=== PATIENT | female | born 1955 | race African-American/Black ===

== ENCOUNTER 2017-06-27 19:28 | Emergency (ER) | payer MEDICAID ==
[~2017-06-27] VITALS: Ht 167.6 cm; Wt 64.0 kg
[2017-06-27] MEDS ORDERED: KETOROLAC 15MG/ML VIAL IV ONE (22:15)
[2017-06-28] VITALS: BP 129/84
== END 2017-06-28 00:34 | disposition home or self-care (01) ==
LOC: ER 19:28
DX: F10.10 Alcohol abuse, uncomplicated (principal); M79.604 Pain in right leg; E11.9 Type 2 diabetes mellitus without complications; I10 Essential (primary) hypertension; F41.9 Anxiety disorder, unspecified; F17.200 Nicotine dependence, unspecified, uncomplicated
CPT/HCPCS: 96374; 99284; J1885

== ENCOUNTER 2020-12-03 01:20 | Inpatient (IN) | payer MEDICARE, MEDICAID ==
[~2020-12-03] VITALS: Ht 170.2 cm; Wt 76.7 kg
[2020-12-03 02:15] LABS: BASOPHILS % 0.4 % (0.0-2.0); EOSINOPHILS % 0.1 % (0.0-5.0); HEMATOCRIT. 36.9 % (36.0-48.0); HEMOGLOBIN. 12.2 g/dL (12.0-16.0); LYMPHOCYTES % 21.7 % (20.0-50.0); MEAN CORPUSCULAR HEMOGLOBIN 30.2 pg (28.0-32.0); MEAN CORPUSCULAR VOLUME 91.7 fL (81.0-99.0); MEAN PLATELET VOLUME 8.6 fl (7.4-10.4); MONOCYTES % 4.7 % (2.0-8.0); NEUTROPHILS % 73.1 % (40.0-76.0); PLATELET 258 x1000/uL (130-400); RED BLOOD CELL COUNT 4.03 mill/uL (4.2-5.4); RED CELL DISTRIBUTION WIDTH 13.8 % (11.6-14.6)
[2020-12-03 02:17] LABS: CHLORIDE 111 mEq/L (98-107)
[2020-12-03 02:22] LABS: ETHANOL BLOOD 151 mg/dL
[2020-12-03 02:28] LABS: HCG SCREEN NEGATIVE
[2020-12-03] MEDS ORDERED: LORAZEPAM 2MG/ML CPJ IM ONE (04:30)
[2020-12-03 05:22] LABS: CLARITY URINE CLOUDY (CLEAR); COLOR URINE RED (YELLOW); KETONES URINE NEGATIVE (NEGATIVE); LEUKOCYTE ESTERASE URINE TRACE (NEGATIVE); NITRITE URINE NEGATIVE (NEGATIVE); OCCULT BLOOD URINE 3+ (NEGATIVE); PROTEIN URINE 2+ (NEGATIVE); SPECIFIC GRAVITY URINE 1.007 (1.005-1.030); UROBILINOGEN URINE 0.2 E.U./dL (0.2-1.0)
[2020-12-03 06:19] LABS: *AMPHETAMINES SCREEN URINE NEGATIVE (NEGATIVE); *BARBITURATES SCREEN URINE NEGATIVE (NEGATIVE); *BENZODIAZEPINES SCREEN URINE NEGATIVE (NEGATIVE); *COCAINE SCREEN URINE PRESUMTIVE POSITIVE (NEGATIVE)
[2020-12-03 06:20] LABS: CANNABINOID URINE SCREEN NEGATIVE (NEGATIVE); METHADONE URINE SCREEN NEGATIVE (NEGATIVE); OPIATES URINE SCREEN NEGATIVE (NEGATIVE); PHENCYCLIDINE URINE SCREEN NEGATIVE (NEGATIVE)
[2020-12-03] MEDS ORDERED: MEROPENEM 1,000 MG in SODIUM CHLORIDE 0.9% 100 ML IV SCH (07:00)
[2020-12-03] MEDS ORDERED: VANCOMYCIN 1 G PREMIX 200 ML IV SCH (07:00)
[2020-12-03] MEDS ORDERED: SODIUM CHLORIDE 0.9% 1,000 ML IV SCH (07:00)
[2020-12-03 10:00] VITALS: BP 152/77
[2020-12-03 10:23] VITALS: BP 152/77
[2020-12-03 12:00] VITALS: BP 143/125
[2020-12-03] MEDS ORDERED: DEXTROSE 50% WATER 50ML SYRINGE IV PRN ×2 (12:15)
[2020-12-03] MEDS ORDERED: MAGNESIUM/ALUMINUM HYDROXIDE/SIMETHICONE 30ML UDC PO PRN (12:15)
[2020-12-03] MEDS ORDERED: DOCUSATE SODIUM 100MG CAPSULE PO PRN (12:15)
[2020-12-03] MEDS: INSULIN LISPRO 100 UNITS/ML SUBCUT SCH ×3 (12:15→20:31)
[2020-12-03] MEDS ORDERED: POTASSIUM CHLORIDE INJ 40 MEQ in DEXT 5% WATER 250 ML IV NR (13:00)
[2020-12-03] MEDS: ENOXAPARIN 40MG/0.4ML SYR SUBCUT SCH (13:17)
[2020-12-03] MEDS: LORAZEPAM 2MG/ML CPJ IV PRN (13:17)
[2020-12-03 16:00] VITALS: BP 119/83
[2020-12-03] MEDS: BLOOD SUGAR DIAGNOSTIC STRIP TEST SCH ×2 (17:29→20:31)
[2020-12-03] MEDS: NITROFURANTOIN MACROCRYSTAL 50MG CAPSULE PO SCH (17:29)
[2020-12-03 20:00] VITALS: BP 124/77
[2020-12-03 20:03] LABS: VITAMIN B12 SERUM 377 pg/mL (211-911)
[2020-12-04] VITALS: BP 132/77
[2020-12-04] MEDS: NITROFURANTOIN MACROCRYSTAL 50MG CAPSULE PO SCH ×4 (00:56→17:14)
[2020-12-04] MEDS: HYDROCODONE/ACETAMINOPHEN 5/325MG TABLET PO PRN ×2 (02:36→08:29)
[2020-12-04 04:00] VITALS: BP 121/74
[2020-12-04] MEDS ORDERED: MORPHINE SULFATE 2 MG/ML CPJ (NOT FOR IM USE) IV PRN (06:15)
[2020-12-04] MEDS: BLOOD SUGAR DIAGNOSTIC STRIP TEST SCH ×4 (06:15→21:29)
[2020-12-04] MEDS: INSULIN LISPRO 100 UNITS/ML SUBCUT SCH ×4 (06:17→21:00)
[2020-12-04] MEDS: OMEPRAZOLE 20MG CAPSULE EXTENDED RELEASE PO SCH (06:17)
[2020-12-04 07:11] LABS: BASOPHILS % 0.4 % (0.0-2.0); HEMATOCRIT. 30.2 % (36.0-48.0); LYMPHOCYTES % 26.4 % (20.0-50.0); MEAN CORPUSCULAR HEMOGLOBIN 29.9 pg (28.0-32.0); MEAN CORPUSCULAR VOLUME 90.3 fL (81.0-99.0); MEAN PLATELET VOLUME 9.3 fl (7.4-10.4); NEUTROPHILS % 63.2 % (40.0-76.0); PLATELET 206 x1000/uL (130-400); RED BLOOD CELL COUNT 3.35 mill/uL (4.2-5.4); RED CELL DISTRIBUTION WIDTH 13.8 % (11.6-14.6)
[2020-12-04 07:59] LABS: CHLORIDE 109 mEq/L (98-107)
[2020-12-04 08:00] VITALS: BP 150/86
[2020-12-04 08:07] LABS: PHOSPHORUS 3.4 mg/dL (2.5-4.9)
[2020-12-04 08:08] LABS: LDL CHOLESTEROL 92 mg/dL (5-100)
[2020-12-04 08:15] LABS: HDL CHOLESTEROL 49 mg/dL (40-59)
[2020-12-04] MEDS: ENOXAPARIN 40MG/0.4ML SYR SUBCUT SCH (08:28)
[2020-12-04 12:00] VITALS: BP 104/82
[2020-12-04 16:00] VITALS: BP 128/81
[2020-12-05] VITALS: BP 97/53
[2020-12-05] MEDS: NITROFURANTOIN MACROCRYSTAL 50MG CAPSULE PO SCH ×4 (00:06→17:24)
[2020-12-05] MEDS: HYDROCODONE/ACETAMINOPHEN 5/325MG TABLET PO PRN ×2 (02:53→22:14)
[2020-12-05 04:00] VITALS: BP 124/77
[2020-12-05] MEDS: OMEPRAZOLE 20MG CAPSULE EXTENDED RELEASE PO SCH (06:19)
[2020-12-05] MEDS: BLOOD SUGAR DIAGNOSTIC STRIP TEST SCH ×4 (06:20→20:04)
[2020-12-05] MEDS: INSULIN LISPRO 100 UNITS/ML SUBCUT SCH ×4 (06:20→20:18)
[2020-12-05 08:00] VITALS: BP 105/60
[2020-12-05 08:41] LABS: BASOPHILS % 0.5 % (0.0-2.0); EOSINOPHILS % 0.2 % (0.0-5.0); HEMATOCRIT. 25.6 % (36.0-48.0); HEMOGLOBIN. 8.7 g/dL (12.0-16.0); LYMPHOCYTES % 20.6 % (20.0-50.0); MEAN CORPUSCULAR HEMOGLOBIN 30.6 pg (28.0-32.0); MEAN CORPUSCULAR VOLUME 90.1 fL (81.0-99.0); MEAN PLATELET VOLUME 9.5 fl (7.4-10.4); MONOCYTES % 9.3 % (2.0-8.0); NEUTROPHILS % 69.4 % (40.0-76.0); PLATELET 192 x1000/uL (130-400); RED BLOOD CELL COUNT 2.84 mill/uL (4.2-5.4); RED CELL DISTRIBUTION WIDTH 13.2 % (11.6-14.6)
[2020-12-05] MEDS: ENOXAPARIN 40MG/0.4ML SYR SUBCUT SCH (08:44)
[2020-12-05 08:49] LABS: CHLORIDE 107 mEq/L (98-107)
[2020-12-05 12:00] VITALS: BP 119/70
[2020-12-05 16:00] VITALS: BP 140/68
[2020-12-05 18:08] LABS: TOTAL IRON BINDING CAPACITY 244 ug/dL (250-450)
[2020-12-05] MEDS: LACTULOSE 20G/30ML UDC PO NR ×2 (19:55→22:18)
[2020-12-05 20:00] VITALS: BP 126/75
[2020-12-06] VITALS: BP 147/93
[2020-12-06] MEDS: NITROFURANTOIN MACROCRYSTAL 50MG CAPSULE PO SCH ×4 (00:58→17:03)
[2020-12-06] MEDS: ACETAMINOPHEN 325MG TABLET PO PRN ×2 (00:58→16:57)
[2020-12-06 04:00] VITALS: BP 144/81
[2020-12-06] MEDS: HYDROCODONE/ACETAMINOPHEN 5/325MG TABLET PO PRN ×3 (05:05→17:03)
[2020-12-06] MEDS: OMEPRAZOLE 20MG CAPSULE EXTENDED RELEASE PO SCH (05:48)
[2020-12-06] MEDS: BLOOD SUGAR DIAGNOSTIC STRIP TEST SCH ×4 (05:48→21:00)
[2020-12-06] MEDS: INSULIN LISPRO 100 UNITS/ML SUBCUT SCH ×4 (06:26→21:00)
[2020-12-06 07:13] LABS: HIV SCREEN 4G Non Reactive (Non Reactive)
[2020-12-06 07:45] LABS: BASOPHILS % 0.5 % (0.0-2.0); EOSINOPHILS % 0.6 % (0.0-5.0); HEMATOCRIT. 26.3 % (36.0-48.0); HEMOGLOBIN. 8.9 g/dL (12.0-16.0); LYMPHOCYTES % 23.4 % (20.0-50.0); MEAN CORPUSCULAR HEMOGLOBIN 30.7 pg (28.0-32.0); MEAN CORPUSCULAR VOLUME 90.2 fL (81.0-99.0); MEAN PLATELET VOLUME 8.7 fl (7.4-10.4); MONOCYTES % 8.4 % (2.0-8.0); NEUTROPHILS % 67.1 % (40.0-76.0); PLATELET 201 x1000/uL (130-400); RED BLOOD CELL COUNT 2.91 mill/uL (4.2-5.4); RED CELL DISTRIBUTION WIDTH 13.6 % (11.6-14.6)
[2020-12-06 08:00] VITALS: BP 138/69
[2020-12-06 08:20] LABS: CHLORIDE 105 mEq/L (98-107)
[2020-12-06] MEDS: LEVOFLOXACIN 500MG PREMIX 100 ML IV SCH ×2 (08:22→09:53)
[2020-12-06] MEDS: DOCUSATE SODIUM 100MG CAPSULE PO SCH ×2 (11:44→16:57)
[2020-12-06 12:00] VITALS: BP 100/64
[2020-12-06 16:00] VITALS: BP 137/75
[2020-12-06 20:00] VITALS: BP 146/74
[2020-12-06] MEDS ORDERED: MORPHINE SULFATE 2 MG/ML CPJ (NOT FOR IM USE) IV NR (20:15)
[2020-12-06] MEDS: SENNOSIDES/DOCUSATE SOD 8.6/50MG TABLET PO SCH (21:23)
[2020-12-07] VITALS: BP 131/67
[2020-12-07] MEDS: NITROFURANTOIN MACROCRYSTAL 50MG CAPSULE PO SCH ×5 (00:07→23:21)
[2020-12-07 04:00] VITALS: BP 134/76
[2020-12-07 04:15] LABS: BASOPHILS % 0.5 % (0.0-2.0); EOSINOPHILS % 1.4 % (0.0-5.0); HEMATOCRIT. 25.5 % (36.0-48.0); HEMOGLOBIN. 8.6 g/dL (12.0-16.0); LYMPHOCYTES % 24.7 % (20.0-50.0); MEAN CORPUSCULAR HEMOGLOBIN 30.3 pg (28.0-32.0); MEAN CORPUSCULAR VOLUME 90.2 fL (81.0-99.0); MEAN PLATELET VOLUME 8.4 fl (7.4-10.4); MONOCYTES % 10.4 % (2.0-8.0); PLATELET 218 x1000/uL (130-400); RED BLOOD CELL COUNT 2.83 mill/uL (4.2-5.4); RED CELL DISTRIBUTION WIDTH 13.4 % (11.6-14.6)
[2020-12-07 04:22] LABS: CHLORIDE 104 mEq/L (98-107)
[2020-12-07] MEDS: LORAZEPAM 2MG/ML CPJ IV PRN (04:45)
[2020-12-07] MEDS: BLOOD SUGAR DIAGNOSTIC STRIP TEST SCH ×4 (06:03→21:20)
[2020-12-07] MEDS: OMEPRAZOLE 20MG CAPSULE EXTENDED RELEASE PO SCH (06:05)
[2020-12-07] MEDS: INSULIN LISPRO 100 UNITS/ML SUBCUT SCH ×4 (06:16→21:00)
[2020-12-07 08:00] VITALS: BP_SYST 122; BP_SYST 137; BP_DIAS 68; BP_DIAS 70
[2020-12-07] MEDS ORDERED: MORPHINE SULFATE 4 MG/ML CPJ (NOT FOR IM USE) IV NR (10:15)
[2020-12-07] MEDS: DOCUSATE SODIUM 100MG CAPSULE PO SCH ×2 (10:19→16:45)
[2020-12-07] MEDS: FOLIC ACID 1MG TABLET PO SCH (10:19)
[2020-12-07] MEDS: LEVOFLOXACIN 500MG PREMIX 100 ML IV SCH (10:19)
[2020-12-07 12:00] VITALS: BP 122/70
[2020-12-07 16:00] VITALS: BP 107/71
[2020-12-07] MEDS: HYDROCODONE/ACETAMINOPHEN 5/325MG TABLET PO PRN (16:45)
[2020-12-07 20:00] VITALS: BP 125/75
[2020-12-07] MEDS: SENNOSIDES/DOCUSATE SOD 8.6/50MG TABLET PO SCH (21:20)
[2020-12-08] VITALS: BP 140/82
[2020-12-08 04:00] VITALS: BP 115/72
[2020-12-08] MEDS: NITROFURANTOIN MACROCRYSTAL 50MG CAPSULE PO SCH ×3 (05:28→17:57)
[2020-12-08] MEDS: OMEPRAZOLE 20MG CAPSULE EXTENDED RELEASE PO SCH (05:29)
[2020-12-08] MEDS: HYDROCODONE/ACETAMINOPHEN 5/325MG TABLET PO PRN (05:29)
[2020-12-08] MEDS: LORAZEPAM 2MG/ML CPJ IV PRN (05:36)
[2020-12-08] MEDS: BLOOD SUGAR DIAGNOSTIC STRIP TEST SCH ×4 (06:32→20:48)
[2020-12-08] MEDS: INSULIN LISPRO 100 UNITS/ML SUBCUT SCH ×4 (06:33→20:48)
[2020-12-08 06:56] LABS: CHLORIDE 101 mEq/L (98-107)
[2020-12-08 07:00] LABS: BASOPHILS % 0.5 % (0.0-2.0); EOSINOPHILS % 1.1 % (0.0-5.0); HEMOGLOBIN. 8.5 g/dL (12.0-16.0); LYMPHOCYTES % 23.7 % (20.0-50.0); MEAN CORPUSCULAR HEMOGLOBIN 30.8 pg (28.0-32.0); MEAN CORPUSCULAR VOLUME 90.3 fL (81.0-99.0); MEAN PLATELET VOLUME 8.5 fl (7.4-10.4); MONOCYTES % 10.3 % (2.0-8.0); NEUTROPHILS % 64.4 % (40.0-76.0); PLATELET 242 x1000/uL (130-400); RED BLOOD CELL COUNT 2.77 mill/uL (4.2-5.4); RED CELL DISTRIBUTION WIDTH 13.6 % (11.6-14.6)
[2020-12-08 08:00] VITALS: BP 113/66
[2020-12-08] MEDS: FOLIC ACID 1MG TABLET PO SCH (08:38)
[2020-12-08] MEDS: DOCUSATE SODIUM 100MG CAPSULE PO SCH ×2 (08:38→17:00)
[2020-12-08] MEDS: LEVOFLOXACIN 500MG TABLET PO SCH (11:36)
[2020-12-08 12:00] VITALS: BP 121/59
[2020-12-08] MEDS: HYDROCODONE/ACETAMINOPHEN 10/325MG TABLET PO PRN ×2 (15:57→20:20)
[2020-12-08 16:00] VITALS: BP 107/53
[2020-12-08] MEDS ORDERED: LACTULOSE 20G/30ML UDC PO NR (17:00)
[2020-12-08 20:00] VITALS: BP 141/82
[2020-12-08] MEDS: SENNOSIDES/DOCUSATE SOD 8.6/50MG TABLET PO SCH (20:19)
[2020-12-09] VITALS: BP 113/68
[2020-12-09] MEDS: HYDROCODONE/ACETAMINOPHEN 10/325MG TABLET PO PRN ×2 (02:44→06:30)
[2020-12-09 04:00] VITALS: BP 112/66
[2020-12-09] MEDS: ACETAMINOPHEN 325MG TABLET PO PRN (04:15)
[2020-12-09] MEDS: OMEPRAZOLE 20MG CAPSULE EXTENDED RELEASE PO SCH (05:45)
[2020-12-09] MEDS: BLOOD SUGAR DIAGNOSTIC STRIP TEST SCH ×4 (06:19→20:27)
[2020-12-09] MEDS: INSULIN LISPRO 100 UNITS/ML SUBCUT SCH ×4 (06:20→20:25)
[2020-12-09 06:49] LABS: BASOPHILS % 0.3 % (0.0-2.0); EOSINOPHILS % 0.3 % (0.0-5.0); HEMOGLOBIN. 9.1 g/dL (12.0-16.0); LYMPHOCYTES % 9.4 % (20.0-50.0); MEAN CORPUSCULAR HEMOGLOBIN 30.3 pg (28.0-32.0); MEAN CORPUSCULAR VOLUME 90.5 fL (81.0-99.0); MEAN PLATELET VOLUME 8.6 fl (7.4-10.4); MONOCYTES % 6.3 % (2.0-8.0); NEUTROPHILS % 83.7 % (40.0-76.0); PLATELET 292 x1000/uL (130-400); RED BLOOD CELL COUNT 2.99 mill/uL (4.2-5.4); RED CELL DISTRIBUTION WIDTH 13.7 % (11.6-14.6)
[2020-12-09 06:57] LABS: CHLORIDE 103 mEq/L (98-107)
[2020-12-09 08:00] VITALS: BP 129/67
[2020-12-09] MEDS: DOCUSATE SODIUM 100MG CAPSULE PO SCH ×2 (09:00→17:17)
[2020-12-09] MEDS: FOLIC ACID 1MG TABLET PO SCH (09:40)
[2020-12-09] MEDS ORDERED: MORPHINE SULFATE 2 MG/ML CPJ (NOT FOR IM USE) IV SCH (10:00)
[2020-12-09] MEDS: LEVOFLOXACIN 500MG TABLET PO SCH (11:13)
[2020-12-09 12:00] VITALS: BP 142/72
[2020-12-09 16:00] VITALS: BP 123/67
[2020-12-09 20:00] VITALS: BP 121/66
[2020-12-09] MEDS: SENNOSIDES/DOCUSATE SOD 8.6/50MG TABLET PO SCH (20:19)
[2020-12-09] MEDS: MORPHINE SULFATE 4 MG/ML CPJ (NOT FOR IM USE) IV PRN (20:20)
[2020-12-09] MEDS: LORAZEPAM 2MG/ML CPJ IV PRN (22:12)
[2020-12-10] VITALS: BP 115/63
[2020-12-10] MEDS: MORPHINE SULFATE 4 MG/ML CPJ (NOT FOR IM USE) IV PRN (02:57)
[2020-12-10 04:00] VITALS: BP 127/72
[2020-12-10] MEDS: HYDROCODONE/ACETAMINOPHEN 10/325MG TABLET PO PRN ×4 (04:59→20:35)
[2020-12-10] MEDS: BLOOD SUGAR DIAGNOSTIC STRIP TEST SCH ×4 (05:53→20:33)
[2020-12-10] MEDS: INSULIN LISPRO 100 UNITS/ML SUBCUT SCH ×4 (05:54→20:33)
[2020-12-10 08:00] VITALS: BP 115/73
[2020-12-10] MEDS: DOCUSATE SODIUM 100MG CAPSULE PO SCH ×2 (09:11→16:07)
[2020-12-10] MEDS: FOLIC ACID 1MG TABLET PO SCH (09:11)
[2020-12-10] MEDS: LEVOFLOXACIN 500MG TABLET PO SCH (11:25)
[2020-12-10 12:00] VITALS: BP 113/71
[2020-12-10] MEDS: ENOXAPARIN 40MG/0.4ML SYR SUBCUT SCH (12:58)
[2020-12-10 16:00] VITALS: BP 108/61
[2020-12-10 20:00] VITALS: BP 123/71
[2020-12-10] MEDS: SENNOSIDES/DOCUSATE SOD 8.6/50MG TABLET PO SCH (20:33)
[2020-12-11] VITALS: BP 124/75
[2020-12-11] MEDS: HYDROCODONE/ACETAMINOPHEN 10/325MG TABLET PO PRN ×3 (01:25→21:02)
[2020-12-11 04:00] VITALS: BP 106/62
[2020-12-11] MEDS: INSULIN LISPRO 100 UNITS/ML SUBCUT SCH ×4 (05:43→21:03)
[2020-12-11] MEDS: BLOOD SUGAR DIAGNOSTIC STRIP TEST SCH ×4 (05:43→21:01)
[2020-12-11 08:00] VITALS: BP 108/61
[2020-12-11] MEDS: FOLIC ACID 1MG TABLET PO SCH (08:47)
[2020-12-11] MEDS: DOCUSATE SODIUM 100MG CAPSULE PO SCH ×2 (08:48→17:28)
[2020-12-11 08:50] LABS: BASOPHILS % 0.7 % (0.0-2.0); EOSINOPHILS % 3.4 % (0.0-5.0); HEMATOCRIT. 23.8 % (36.0-48.0); HEMOGLOBIN. 8.1 g/dL (12.0-16.0); LYMPHOCYTES % 24.5 % (20.0-50.0); MEAN CORPUSCULAR HEMOGLOBIN 30.6 pg (28.0-32.0); MEAN CORPUSCULAR VOLUME 90.1 fL (81.0-99.0); MONOCYTES % 8.9 % (2.0-8.0); NEUTROPHILS % 62.5 % (40.0-76.0); PLATELET 322 x1000/uL (130-400); RED BLOOD CELL COUNT 2.64 mill/uL (4.2-5.4); RED CELL DISTRIBUTION WIDTH 13.7 % (11.6-14.6)
[2020-12-11 09:31] LABS: CHLORIDE 103 mEq/L (98-107)
[2020-12-11] MEDS: LEVOFLOXACIN 500MG TABLET PO SCH (11:43)
[2020-12-11 12:00] VITALS: BP 123/71
[2020-12-11] MEDS: ENOXAPARIN 40MG/0.4ML SYR SUBCUT SCH (13:18)
[2020-12-11 16:00] VITALS: BP 113/65
[2020-12-11 20:00] VITALS: BP 117/65
[2020-12-11] MEDS: SENNOSIDES/DOCUSATE SOD 8.6/50MG TABLET PO SCH (21:02)
[2020-12-12] VITALS: BP 125/69
[2020-12-12] MEDS: HYDROCODONE/ACETAMINOPHEN 10/325MG TABLET PO PRN ×3 (02:51→22:22)
[2020-12-12 04:00] VITALS: BP 106/62
[2020-12-12] MEDS: INSULIN LISPRO 100 UNITS/ML SUBCUT SCH ×4 (06:21→21:00)
[2020-12-12] MEDS: BLOOD SUGAR DIAGNOSTIC STRIP TEST SCH ×4 (06:21→21:04)
[2020-12-12 08:00] VITALS: BP 108/66
[2020-12-12] MEDS: FOLIC ACID 1MG TABLET PO SCH (09:03)
[2020-12-12] MEDS: DOCUSATE SODIUM 100MG CAPSULE PO SCH ×2 (09:03→17:00)
[2020-12-12] MEDS: MORPHINE SULFATE 4 MG/ML CPJ (NOT FOR IM USE) IV PRN (09:04)
[2020-12-12 12:00] VITALS: BP 122/70
[2020-12-12] MEDS: ENOXAPARIN 40MG/0.4ML SYR SUBCUT SCH (14:02)
[2020-12-12 16:00] VITALS: BP 114/70
[2020-12-12] MEDS: LACTULOSE 20G/30ML UDC PO SCH ×2 (17:40→21:04)
[2020-12-12 20:00] VITALS: BP 110/68
[2020-12-12] MEDS: SENNOSIDES/DOCUSATE SOD 8.6/50MG TABLET PO SCH (21:04)
[2020-12-13] VITALS: BP 172/65
[2020-12-13] MEDS: ACETAMINOPHEN 325MG TABLET PO PRN (03:03)
[2020-12-13 04:00] VITALS: BP 154/75
[2020-12-13] MEDS: MORPHINE SULFATE 4 MG/ML CPJ (NOT FOR IM USE) IV PRN ×2 (05:16→17:42)
[2020-12-13] MEDS: LACTULOSE 20G/30ML UDC PO SCH ×3 (06:05→21:31)
[2020-12-13] MEDS: BLOOD SUGAR DIAGNOSTIC STRIP TEST SCH ×4 (06:05→21:31)
[2020-12-13] MEDS: INSULIN LISPRO 100 UNITS/ML SUBCUT SCH ×4 (06:26→21:00)
[2020-12-13 08:00] VITALS: BP 131/77
[2020-12-13] MEDS: HYDROCODONE/ACETAMINOPHEN 10/325MG TABLET PO PRN (08:04)
[2020-12-13] MEDS: FOLIC ACID 1MG TABLET PO SCH (08:44)
[2020-12-13] MEDS: DOCUSATE SODIUM 100MG CAPSULE PO SCH ×2 (08:45→17:42)
[2020-12-13 12:00] VITALS: BP 140/78
[2020-12-13] MEDS: ENOXAPARIN 40MG/0.4ML SYR SUBCUT SCH (12:20)
[2020-12-13 16:00] VITALS: BP 140/79
[2020-12-13 17:48] LABS: BASOPHILS % 0.8 % (0.0-2.0); EOSINOPHILS % 1.7 % (0.0-5.0); HEMATOCRIT. 29.3 % (36.0-48.0); HEMOGLOBIN. 9.5 g/dL (12.0-16.0); LYMPHOCYTES % 26.7 % (20.0-50.0); MEAN CORPUSCULAR VOLUME 92.6 fL (81.0-99.0); MEAN PLATELET VOLUME 8.4 fl (7.4-10.4); MONOCYTES % 8.2 % (2.0-8.0); NEUTROPHILS % 62.6 % (40.0-76.0); PLATELET 365 x1000/uL (130-400); RED BLOOD CELL COUNT 3.16 mill/uL (4.2-5.4); RED CELL DISTRIBUTION WIDTH 14.4 % (11.6-14.6)
[2020-12-13 17:50] LABS: CHLORIDE 108 mEq/L (98-107)
[2020-12-13 20:00] VITALS: BP 122/72
[2020-12-13] MEDS: SENNOSIDES/DOCUSATE SOD 8.6/50MG TABLET PO SCH (21:31)
[2020-12-13] MEDS: LORAZEPAM 2MG/ML CPJ IV PRN (21:31)
[2020-12-14] VITALS: BP 148/79
[2020-12-14 04:00] VITALS: BP 135/78
[2020-12-14] MEDS: MORPHINE SULFATE 4 MG/ML CPJ (NOT FOR IM USE) IV PRN (05:34)
[2020-12-14] MEDS: BLOOD SUGAR DIAGNOSTIC STRIP TEST SCH ×4 (06:22→20:40)
[2020-12-14] MEDS: LACTULOSE 20G/30ML UDC PO SCH ×3 (06:22→20:41)
[2020-12-14] MEDS: INSULIN LISPRO 100 UNITS/ML SUBCUT SCH ×4 (06:22→20:40)
[2020-12-14 08:00] VITALS: BP 122/78
[2020-12-14] MEDS: DOCUSATE SODIUM 100MG CAPSULE PO SCH ×2 (09:07→18:22)
[2020-12-14] MEDS: FOLIC ACID 1MG TABLET PO SCH (09:07)
[2020-12-14] MEDS: HYDROCODONE/ACETAMINOPHEN 10/325MG TABLET PO PRN ×3 (09:09→22:00)
[2020-12-14 12:00] VITALS: BP 125/70
[2020-12-14] MEDS: ENOXAPARIN 40MG/0.4ML SYR SUBCUT SCH (13:30)
[2020-12-14 16:00] VITALS: BP 130/77
[2020-12-14 20:00] VITALS: BP 104/54
[2020-12-14] MEDS: SENNOSIDES/DOCUSATE SOD 8.6/50MG TABLET PO SCH (20:35)
[2020-12-15] VITALS: BP 112/67
[2020-12-15] MEDS: HYDROCODONE/ACETAMINOPHEN 10/325MG TABLET PO PRN ×4 (02:18→21:11)
[2020-12-15 04:00] VITALS: BP 129/68
[2020-12-15] MEDS: LACTULOSE 20G/30ML UDC PO SCH ×3 (06:25→21:12)
[2020-12-15] MEDS: BLOOD SUGAR DIAGNOSTIC STRIP TEST SCH ×4 (06:34→21:12)
[2020-12-15] MEDS: INSULIN LISPRO 100 UNITS/ML SUBCUT SCH ×4 (06:35→21:00)
[2020-12-15 08:00] VITALS: BP 132/82
[2020-12-15] MEDS: FOLIC ACID 1MG TABLET PO SCH (08:52)
[2020-12-15] MEDS: DOCUSATE SODIUM 100MG CAPSULE PO SCH ×2 (08:52→16:54)
[2020-12-15 12:00] VITALS: BP 113/78
[2020-12-15] MEDS: ENOXAPARIN 40MG/0.4ML SYR SUBCUT SCH (13:21)
[2020-12-15 16:00] VITALS: BP 132/78
[2020-12-15 20:29] VITALS: BP 121/54
[2020-12-15] MEDS: SENNOSIDES/DOCUSATE SOD 8.6/50MG TABLET PO SCH (21:00)
[2020-12-15] MEDS: LORAZEPAM 2MG/ML CPJ IV PRN (23:32)
[2020-12-16] VITALS: BP 139/78
[2020-12-16 04:00] VITALS: BP 125/75
[2020-12-16] MEDS: HYDROCODONE/ACETAMINOPHEN 10/325MG TABLET PO PRN ×3 (05:26→20:30)
[2020-12-16] MEDS: LACTULOSE 20G/30ML UDC PO SCH ×3 (05:30→21:35)
[2020-12-16] MEDS: INSULIN LISPRO 100 UNITS/ML SUBCUT SCH ×3 (06:25→21:00)
[2020-12-16] MEDS: BLOOD SUGAR DIAGNOSTIC STRIP TEST SCH ×3 (06:25→20:30)
[2020-12-16 08:00] VITALS: BP 114/67
[2020-12-16] MEDS: DOCUSATE SODIUM 100MG CAPSULE PO SCH ×2 (09:58→17:00)
[2020-12-16] MEDS: FOLIC ACID 1MG TABLET PO SCH (09:58)
[2020-12-16 12:00] VITALS: BP 129/71
[2020-12-16] MEDS: ENOXAPARIN 40MG/0.4ML SYR SUBCUT SCH (13:06)
[2020-12-16 16:00] VITALS: BP 122/65
[2020-12-16 20:00] VITALS: BP 130/70
[2020-12-16] MEDS: SENNOSIDES/DOCUSATE SOD 8.6/50MG TABLET PO SCH (20:30)
[2020-12-17] VITALS: BP 113/69
[2020-12-17] MEDS: HYDROCODONE/ACETAMINOPHEN 10/325MG TABLET PO PRN ×5 (00:45→21:41)
[2020-12-17 04:00] VITALS: BP 133/65
[2020-12-17] MEDS: LACTULOSE 20G/30ML UDC PO SCH ×3 (05:18→21:40)
[2020-12-17] MEDS: INSULIN LISPRO 100 UNITS/ML SUBCUT SCH ×4 (06:38→21:00)
[2020-12-17] MEDS: BLOOD SUGAR DIAGNOSTIC STRIP TEST SCH ×4 (06:38→21:41)
[2020-12-17 08:00] VITALS: BP 130/66
[2020-12-17] MEDS: DOCUSATE SODIUM 100MG CAPSULE PO SCH ×2 (09:00→17:00)
[2020-12-17] MEDS: FOLIC ACID 1MG TABLET PO SCH (09:00)
[2020-12-17 12:00] VITALS: BP 116/70
[2020-12-17] MEDS: ENOXAPARIN 40MG/0.4ML SYR SUBCUT SCH (12:21)
[2020-12-17 16:00] VITALS: BP 132/72
[2020-12-17 19:39] LABS: BASOPHILS % 1.1 % (0.0-2.0); EOSINOPHILS % 2.4 % (0.0-5.0); HEMATOCRIT. 31.8 % (36.0-48.0); HEMOGLOBIN. 10.4 g/dL (12.0-16.0); MEAN CORPUSCULAR HEMOGLOBIN 28.9 pg (28.0-32.0); MEAN CORPUSCULAR VOLUME 88.3 fL (81.0-99.0); MEAN PLATELET VOLUME 7.2 fl (7.4-10.4); MONOCYTES % 7.2 % (2.0-8.0); NEUTROPHILS % 54.3 % (40.0-76.0); PLATELET 595 x1000/uL (130-400)
[2020-12-17 19:43] LABS: CHLORIDE 107 mEq/L (98-107)
[2020-12-17 20:00] VITALS: BP 113/53
[2020-12-17] MEDS: SENNOSIDES/DOCUSATE SOD 8.6/50MG TABLET PO SCH (21:41)
[2020-12-18] VITALS: BP 118/74
[2020-12-18] MEDS: HYDROCODONE/ACETAMINOPHEN 10/325MG TABLET PO PRN ×5 (02:35→22:19)
[2020-12-18 04:00] VITALS: BP 125/71
[2020-12-18] MEDS: LACTULOSE 20G/30ML UDC PO SCH ×3 (06:00→21:47)
[2020-12-18] MEDS: BLOOD SUGAR DIAGNOSTIC STRIP TEST SCH ×4 (07:30→21:35)
[2020-12-18] MEDS: INSULIN LISPRO 100 UNITS/ML SUBCUT SCH ×4 (07:50→21:00)
[2020-12-18 08:00] VITALS: BP 119/74
[2020-12-18] MEDS: DOCUSATE SODIUM 100MG CAPSULE PO SCH ×2 (09:17→18:07)
[2020-12-18] MEDS: MULTIVITAMINS,THER W-MINERALS TABLET PO SCH (09:17)
[2020-12-18] MEDS: FOLIC ACID 1MG TABLET PO SCH (09:17)
[2020-12-18 12:00] VITALS: BP 112/73
[2020-12-18] MEDS: ENOXAPARIN 40MG/0.4ML SYR SUBCUT SCH (13:41)
[2020-12-18 16:00] VITALS: BP 124/73
[2020-12-18 20:00] VITALS: BP 131/53
[2020-12-18] MEDS: SENNOSIDES/DOCUSATE SOD 8.6/50MG TABLET PO SCH (21:47)
[2020-12-19] VITALS: BP 100/53
[2020-12-19 04:00] VITALS: BP 124/70
[2020-12-19] MEDS: LACTULOSE 20G/30ML UDC PO SCH ×4 (06:00→22:00)
[2020-12-19] MEDS: BLOOD SUGAR DIAGNOSTIC STRIP TEST SCH ×4 (07:12→21:00)
[2020-12-19] MEDS: INSULIN LISPRO 100 UNITS/ML SUBCUT SCH ×4 (07:50→21:00)
[2020-12-19 08:00] VITALS: BP 112/64
[2020-12-19] MEDS: FOLIC ACID 1MG TABLET PO SCH (09:14)
[2020-12-19] MEDS: DOCUSATE SODIUM 100MG CAPSULE PO SCH ×2 (09:14→17:48)
[2020-12-19] MEDS: MULTIVITAMINS,THER W-MINERALS TABLET PO SCH (09:14)
[2020-12-19] MEDS: ACETAMINOPHEN 325MG TABLET PO PRN (09:18)
[2020-12-19 12:00] VITALS: BP 118/70
[2020-12-19] MEDS: ENOXAPARIN 40MG/0.4ML SYR SUBCUT SCH (13:38)
[2020-12-19] MEDS: HYDROCODONE/ACETAMINOPHEN 10/325MG TABLET PO PRN ×2 (13:38→17:49)
[2020-12-19 16:00] VITALS: BP 105/66
[2020-12-19 20:00] VITALS: BP 122/60
[2020-12-19] MEDS: SENNOSIDES/DOCUSATE SOD 8.6/50MG TABLET PO SCH (21:00)
[2020-12-20] VITALS: BP 122/60
[2020-12-20 04:00] VITALS: BP 127/61
[2020-12-20] MEDS: HYDROCODONE/ACETAMINOPHEN 10/325MG TABLET PO PRN ×3 (05:04→22:53)
[2020-12-20] MEDS: BLOOD SUGAR DIAGNOSTIC STRIP TEST SCH ×4 (06:27→21:00)
[2020-12-20] MEDS: LACTULOSE 20G/30ML UDC PO SCH ×3 (06:27→21:23)
[2020-12-20] MEDS: INSULIN LISPRO 100 UNITS/ML SUBCUT SCH ×4 (06:55→21:00)
[2020-12-20 08:00] VITALS: BP 131/86
[2020-12-20] MEDS: MULTIVITAMINS,THER W-MINERALS TABLET PO SCH (09:30)
[2020-12-20] MEDS: DOCUSATE SODIUM 100MG CAPSULE PO SCH ×2 (09:30→17:32)
[2020-12-20] MEDS: FOLIC ACID 1MG TABLET PO SCH (09:30)
[2020-12-20 12:00] VITALS: BP 132/84
[2020-12-20] MEDS: ENOXAPARIN 40MG/0.4ML SYR SUBCUT SCH (12:39)
[2020-12-20 16:00] VITALS: BP 143/80
[2020-12-20 20:00] VITALS: BP 108/68
[2020-12-20] MEDS: SENNOSIDES/DOCUSATE SOD 8.6/50MG TABLET PO SCH (21:23)
[2020-12-21] VITALS: BP 105/63
[2020-12-21 04:00] VITALS: BP 106/60
[2020-12-21] MEDS: BLOOD SUGAR DIAGNOSTIC STRIP TEST SCH ×3 (06:32→21:00)
[2020-12-21] MEDS: LACTULOSE 20G/30ML UDC PO SCH ×3 (06:32→22:00)
[2020-12-21] MEDS: HYDROCODONE/ACETAMINOPHEN 10/325MG TABLET PO PRN ×2 (06:32→22:59)
[2020-12-21] MEDS: INSULIN LISPRO 100 UNITS/ML SUBCUT SCH ×3 (06:54→21:00)
[2020-12-21] MEDS: DOCUSATE SODIUM 100MG CAPSULE PO SCH (10:10)
[2020-12-21] MEDS: MULTIVITAMINS,THER W-MINERALS TABLET PO SCH (10:10)
[2020-12-21] MEDS: FOLIC ACID 1MG TABLET PO SCH (10:10)
[2020-12-21] MEDS: ENOXAPARIN 40MG/0.4ML SYR SUBCUT SCH (14:13)
[2020-12-21 20:00] VITALS: BP 125/75
[2020-12-21] MEDS: SENNOSIDES/DOCUSATE SOD 8.6/50MG TABLET PO SCH (22:58)
[2020-12-22] VITALS: BP 120/71
[2020-12-22 04:00] VITALS: BP 126/61
[2020-12-22] MEDS: BLOOD SUGAR DIAGNOSTIC STRIP TEST SCH ×4 (07:20→21:00)
[2020-12-22] MEDS: INSULIN LISPRO 100 UNITS/ML SUBCUT SCH ×4 (07:50→21:00)
[2020-12-22 08:00] VITALS: BP 122/77
[2020-12-22] MEDS: FOLIC ACID 1MG TABLET PO SCH (09:19)
[2020-12-22] MEDS: DOCUSATE SODIUM 100MG CAPSULE PO SCH ×2 (09:19→17:50)
[2020-12-22] MEDS: MULTIVITAMINS,THER W-MINERALS TABLET PO SCH (09:19)
[2020-12-22] MEDS: HYDROCODONE/ACETAMINOPHEN 10/325MG TABLET PO PRN ×2 (11:13→22:43)
[2020-12-22 12:00] VITALS: BP 147/72
[2020-12-22] MEDS: ENOXAPARIN 40MG/0.4ML SYR SUBCUT SCH (12:34)
[2020-12-22] MEDS: LACTULOSE 20G/30ML UDC PO SCH ×2 (14:00→22:00)
[2020-12-22] MEDS: ACETAMINOPHEN 325MG TABLET PO PRN (17:50)
[2020-12-22 20:00] VITALS: BP 102/65
[2020-12-22] MEDS: SENNOSIDES/DOCUSATE SOD 8.6/50MG TABLET PO SCH (21:00)
[2020-12-23] VITALS: BP 130/46
[2020-12-23 04:00] VITALS: BP 130/83
[2020-12-23] MEDS: LACTULOSE 20G/30ML UDC PO SCH ×2 (06:00→13:10)
[2020-12-23] MEDS: BLOOD SUGAR DIAGNOSTIC STRIP TEST SCH ×4 (06:44→20:50)
[2020-12-23] MEDS: HYDROCODONE/ACETAMINOPHEN 10/325MG TABLET PO PRN ×3 (06:45→18:59)
[2020-12-23] MEDS: INSULIN LISPRO 100 UNITS/ML SUBCUT SCH ×4 (07:50→20:50)
[2020-12-23] MEDS: MULTIVITAMINS,THER W-MINERALS TABLET PO SCH (09:35)
[2020-12-23] MEDS: DOCUSATE SODIUM 100MG CAPSULE PO SCH ×2 (09:35→18:59)
[2020-12-23] MEDS: FOLIC ACID 1MG TABLET PO SCH (09:35)
[2020-12-23 12:00] VITALS: BP 124/73
[2020-12-23] MEDS: ENOXAPARIN 40MG/0.4ML SYR SUBCUT SCH (13:09)
[2020-12-23 16:00] VITALS: BP 115/73
[2020-12-23 20:00] VITALS: BP 108/68
[2020-12-23] MEDS: SENNOSIDES/DOCUSATE SOD 8.6/50MG TABLET PO SCH (22:19)
[2020-12-24] VITALS: BP 124/69
[2020-12-24] MEDS: HYDROCODONE/ACETAMINOPHEN 10/325MG TABLET PO PRN (02:26)
[2020-12-24 04:00] VITALS: BP 137/64
[2020-12-24] MEDS: BLOOD SUGAR DIAGNOSTIC STRIP TEST SCH ×4 (06:30→21:00)
[2020-12-24] MEDS: INSULIN LISPRO 100 UNITS/ML SUBCUT SCH ×4 (06:37→21:00)
[2020-12-24 08:00] VITALS: BP 125/68
[2020-12-24 08:25] LABS: CHLORIDE 107 mEq/L (98-107)
[2020-12-24 08:35] LABS: BASOPHILS % 1.1 % (0.0-2.0); EOSINOPHILS % 2.5 % (0.0-5.0); HEMATOCRIT. 31.4 % (36.0-48.0); HEMOGLOBIN. 10.7 g/dL (12.0-16.0); LYMPHOCYTES % 40.2 % (20.0-50.0); MEAN CORPUSCULAR HEMOGLOBIN 29.7 pg (28.0-32.0); MEAN CORPUSCULAR VOLUME 87.4 fL (81.0-99.0); MEAN PLATELET VOLUME 8.3 fl (7.4-10.4); MONOCYTES % 8.4 % (2.0-8.0); NEUTROPHILS % 47.8 % (40.0-76.0); PLATELET 386 x1000/uL (130-400); RED BLOOD CELL COUNT 3.59 mill/uL (4.2-5.4); RED CELL DISTRIBUTION WIDTH 14.1 % (11.6-14.6)
[2020-12-24] MEDS: LACTULOSE 20G/30ML UDC PO SCH ×2 (09:00→09:30)
[2020-12-24] MEDS: FOLIC ACID 1MG TABLET PO SCH (09:29)
[2020-12-24] MEDS: MULTIVITAMINS,THER W-MINERALS TABLET PO SCH (09:29)
[2020-12-24] MEDS: DOCUSATE SODIUM 100MG CAPSULE PO SCH ×3 (09:29→17:07)
[2020-12-24 12:00] VITALS: BP 113/75
[2020-12-24] MEDS: ENOXAPARIN 40MG/0.4ML SYR SUBCUT SCH (13:44)
[2020-12-24 16:00] VITALS: BP 123/64
[2020-12-24 20:00] VITALS: BP 128/74
[2020-12-24] MEDS: SENNOSIDES/DOCUSATE SOD 8.6/50MG TABLET PO SCH (22:00)
[2020-12-25] VITALS: BP 128/73
[2020-12-25] MEDS: HYDROCODONE/ACETAMINOPHEN 10/325MG TABLET PO PRN ×3 (01:36→21:16)
[2020-12-25 04:00] VITALS: BP 116/41
[2020-12-25] MEDS: INSULIN LISPRO 100 UNITS/ML SUBCUT SCH ×4 (07:50→21:00)
[2020-12-25 08:00] VITALS: BP 141/85
[2020-12-25] MEDS: BLOOD SUGAR DIAGNOSTIC STRIP TEST SCH ×4 (08:06→21:16)
[2020-12-25] MEDS: DOCUSATE SODIUM 100MG CAPSULE PO SCH ×2 (10:08→18:04)
[2020-12-25] MEDS: LACTULOSE 20G/30ML UDC PO SCH (10:08)
[2020-12-25] MEDS: MULTIVITAMINS,THER W-MINERALS TABLET PO SCH (10:09)
[2020-12-25] MEDS: FOLIC ACID 1MG TABLET PO SCH (10:09)
[2020-12-25 12:00] VITALS: BP 121/81
[2020-12-25] MEDS: ENOXAPARIN 40MG/0.4ML SYR SUBCUT SCH (13:00)
[2020-12-25 16:00] VITALS: BP 96/69
[2020-12-25 20:00] VITALS: BP 129/72
[2020-12-25] MEDS: SENNOSIDES/DOCUSATE SOD 8.6/50MG TABLET PO SCH (21:15)
[2020-12-26] VITALS: BP 140/86
[2020-12-26 04:00] VITALS: BP 134/86
[2020-12-26] MEDS: HYDROCODONE/ACETAMINOPHEN 10/325MG TABLET PO PRN ×2 (04:30→18:37)
[2020-12-26] MEDS: INSULIN LISPRO 100 UNITS/ML SUBCUT SCH ×4 (07:50→21:00)
[2020-12-26] MEDS: BLOOD SUGAR DIAGNOSTIC STRIP TEST SCH ×4 (07:51→21:15)
[2020-12-26 08:00] VITALS: BP 139/73
[2020-12-26] MEDS: MULTIVITAMINS,THER W-MINERALS TABLET PO SCH (09:00)
[2020-12-26] MEDS: FOLIC ACID 1MG TABLET PO SCH (09:00)
[2020-12-26] MEDS: DOCUSATE SODIUM 100MG CAPSULE PO SCH ×2 (09:00→18:37)
[2020-12-26] MEDS: LACTULOSE 20G/30ML UDC PO SCH (09:00)
[2020-12-26 12:00] VITALS: BP 118/63
[2020-12-26] MEDS: ENOXAPARIN 40MG/0.4ML SYR SUBCUT SCH (12:52)
[2020-12-26 16:00] VITALS: BP 129/70
[2020-12-26 20:00] VITALS: BP 114/77
[2020-12-26] MEDS: SENNOSIDES/DOCUSATE SOD 8.6/50MG TABLET PO SCH (21:13)
[2020-12-26] MEDS: ACETAMINOPHEN 325MG TABLET PO PRN (21:14)
[2020-12-27] VITALS: BP 108/57
[2020-12-27 04:00] VITALS: BP 129/73
[2020-12-27] MEDS: HYDROCODONE/ACETAMINOPHEN 10/325MG TABLET PO PRN ×3 (06:22→20:40)
[2020-12-27] MEDS: BLOOD SUGAR DIAGNOSTIC STRIP TEST SCH ×4 (06:24→20:40)
[2020-12-27 08:00] VITALS: BP 124/69
[2020-12-27] MEDS: INSULIN LISPRO 100 UNITS/ML SUBCUT SCH ×4 (09:04→20:39)
[2020-12-27] MEDS: MULTIVITAMINS,THER W-MINERALS TABLET PO SCH (09:06)
[2020-12-27] MEDS: FOLIC ACID 1MG TABLET PO SCH (09:06)
[2020-12-27] MEDS: LACTULOSE 20G/30ML UDC PO SCH (09:06)
[2020-12-27] MEDS: DOCUSATE SODIUM 100MG CAPSULE PO SCH ×2 (09:06→17:41)
[2020-12-27 12:00] VITALS: BP 138/85
[2020-12-27] MEDS: ENOXAPARIN 40MG/0.4ML SYR SUBCUT SCH ×2 (12:57→13:00)
[2020-12-27 16:00] VITALS: BP 117/68
[2020-12-27 16:27] LABS: *AMPHETAMINES SCREEN URINE NEGATIVE (NEGATIVE); *BARBITURATES SCREEN URINE NEGATIVE (NEGATIVE); *BENZODIAZEPINES SCREEN URINE NEGATIVE (NEGATIVE); *COCAINE SCREEN URINE NEGATIVE (NEGATIVE); METHADONE URINE SCREEN NEGATIVE (NEGATIVE); OPIATES URINE SCREEN PRESUMTIVE POSITIVE (NEGATIVE)
[2020-12-27 16:28] LABS: CANNABINOID URINE SCREEN NEGATIVE (NEGATIVE); PHENCYCLIDINE URINE SCREEN NEGATIVE (NEGATIVE)
[2020-12-27 20:00] VITALS: BP 106/71
[2020-12-27] MEDS: SENNOSIDES/DOCUSATE SOD 8.6/50MG TABLET PO SCH (21:00)
[2020-12-28] VITALS: BP 123/70
[2020-12-28 04:00] VITALS: BP 136/81
[2020-12-28] MEDS: HYDROCODONE/ACETAMINOPHEN 10/325MG TABLET PO PRN ×2 (05:52→16:26)
[2020-12-28] MEDS: INSULIN LISPRO 100 UNITS/ML SUBCUT SCH ×4 (07:50→21:26)
[2020-12-28] MEDS: BLOOD SUGAR DIAGNOSTIC STRIP TEST SCH ×4 (07:58→21:22)
[2020-12-28 08:00] VITALS: BP 133/74
[2020-12-28] MEDS: DOCUSATE SODIUM 100MG CAPSULE PO SCH ×2 (09:22→16:28)
[2020-12-28] MEDS: MULTIVITAMINS,THER W-MINERALS TABLET PO SCH (09:22)
[2020-12-28] MEDS: FOLIC ACID 1MG TABLET PO SCH (09:22)
[2020-12-28] MEDS: LACTULOSE 20G/30ML UDC PO SCH (09:22)
[2020-12-28 12:00] VITALS: BP 106/78
[2020-12-28] MEDS: ENOXAPARIN 40MG/0.4ML SYR SUBCUT SCH (13:28)
[2020-12-28 16:00] VITALS: BP 112/68
[2020-12-28 20:00] VITALS: BP 118/73
[2020-12-28] MEDS: SENNOSIDES/DOCUSATE SOD 8.6/50MG TABLET PO SCH (21:22)
[2020-12-29] VITALS: BP 131/79
[2020-12-29] MEDS: HYDROCODONE/ACETAMINOPHEN 10/325MG TABLET PO PRN (03:57)
[2020-12-29 04:00] VITALS: BP 118/61
[2020-12-29 06:54] LABS: BASOPHILS % 0.9 % (0.0-2.0); EOSINOPHILS % 3.3 % (0.0-5.0); HEMATOCRIT. 32.8 % (36.0-48.0); HEMOGLOBIN. 10.9 g/dL (12.0-16.0); LYMPHOCYTES % 53.1 % (20.0-50.0); MEAN CORPUSCULAR HEMOGLOBIN 28.6 pg (28.0-32.0); MEAN CORPUSCULAR VOLUME 86.4 fL (81.0-99.0); MEAN PLATELET VOLUME 8.8 fl (7.4-10.4); MONOCYTES % 8.2 % (2.0-8.0); NEUTROPHILS % 34.5 % (40.0-76.0); PLATELET 304 x1000/uL (130-400); RED CELL DISTRIBUTION WIDTH 14.3 % (11.6-14.6)
[2020-12-29] MEDS: BLOOD SUGAR DIAGNOSTIC STRIP TEST SCH ×2 (07:00→12:11)
[2020-12-29] MEDS: INSULIN LISPRO 100 UNITS/ML SUBCUT SCH ×2 (07:20→12:11)
[2020-12-29 07:30] LABS: CHLORIDE 109 mEq/L (98-107)
[2020-12-29 08:00] VITALS: BP 138/79
[2020-12-29] MEDS: LACTULOSE 20G/30ML UDC PO SCH (08:44)
[2020-12-29] MEDS: FOLIC ACID 1MG TABLET PO SCH (08:45)
[2020-12-29] MEDS: MULTIVITAMINS,THER W-MINERALS TABLET PO SCH (08:45)
[2020-12-29] MEDS: DOCUSATE SODIUM 100MG CAPSULE PO SCH (08:45)
[2020-12-29 10:47] VITALS: BP 138/79
[2020-12-29 12:02] VITALS: BP 137/73
[2020-12-29] MEDS: ENOXAPARIN 40MG/0.4ML SYR SUBCUT SCH (13:46)
== END 2020-12-29 14:20 | DRG 720 ==
LOC: ER 01:20 → 5WST 06:33 → ENRESERV 07:59 → 6EST 12-15 16:34
PROVIDERS: ADMIT Internal Medicine; ATTEND Internal Medicine
PROC: 4A10X4Z Monitoring of Central Nervous Electrical Activity, External Approach (ICD-10-PCS; principal; 2020-12-07)
PROC: 2W3LX1Z Immobilization of Right Lower Extremity using Splint (ICD-10-PCS; 2020-12-08)
DX: A41.9 Sepsis, unspecified organism (principal); G92 Toxic encephalopathy; J18.9 Pneumonia, unspecified organism; S32.591A Other specified fracture of right pubis, initial encounter for closed fracture; S32.059A Unspecified fracture of fifth lumbar vertebra, initial encounter for closed fracture; E88.09 Other disorders of plasma-protein metabolism, not elsewhere classified; G93.89 Other specified disorders of brain; S32.592A Other specified fracture of left pubis, initial encounter for closed fracture; S32.119A Unspecified Zone I fracture of sacrum, initial encounter for closed fracture; S00.03XA Contusion of scalp, initial encounter; E11.65 Type 2 diabetes mellitus with hyperglycemia; I69.30 Unspecified sequelae of cerebral infarction; F14.10 Cocaine abuse, uncomplicated; E87.6 Hypokalemia; I10 Essential (primary) hypertension; N39.0 Urinary tract infection, site not specified; Y90.6 Blood alcohol level of 120-199 mg/100 ml; D64.9 Anemia, unspecified; R74.01 Elevation of levels of liver transaminase levels; K57.90 Diverticulosis of intestine, part unspecified, without perforation or abscess without bleeding; K76.0 Fatty (change of) liver, not elsewhere classified; Z20.822 Contact with and (suspected) exposure to COVID-19; W18.39XA Other fall on same level, initial encounter; K80.20 Calculus of gallbladder without cholecystitis without obstruction; Z79.4 Long term (current) use of insulin; Z88.0 Allergy status to penicillin; Z79.899 Other long term (current) drug therapy; Z71.51 Drug abuse counseling and surveillance of drug abuser; Y93.89 Activity, other specified; Y92.89 Other specified places as the place of occurrence of the external cause; Y99.8 Other external cause status; F10.20 Alcohol dependence, uncomplicated
CPT/HCPCS: 36415; 71045; 72190; 72192; 73522; 76700; 80048; 80053; 80061; 80076; 80305; 80320; 81003; 82140; 82607; 82728; 82746; 82962; 83036; 83540; 83550; 83735; 84100; 84443; 84703; 85025; 85044; 87389; 87426; 93970; 95816; 97162; 97164; 97165; 97168; 99285; A6261; C1893; J1650; J1815; J1956; J2060; J2185; J2270; J3370; J3480; J7040; J7050; J7060; U0003; U0005; A4315; G0480